=== PATIENT | female | born 1940 | race Asian ===

== ENCOUNTER 2018-08-02 06:06 | Day surgery (SDC) | payer MEDICARE, OTHER ==
[~2018-08-02] VITALS: Ht 154.9 cm; Wt 56.0 kg
[~2018-08-02 06:06] MED LIST: SODIUM CHLORIDE 0.9% 1,000 ML IV ONE
[2018-08-02] MEDS ORDERED: SODIUM CHLORIDE 0.9% 1,000 ML IV ONE (07:00)
[2018-08-02] MEDS ORDERED: MONT10TA21 PO (07:42)
[2018-08-02] MEDS ORDERED: ASPI81 PO (07:42)
[2018-08-02] MEDS ORDERED: METH-417 PO (07:42)
[2018-08-02] MEDS ORDERED: OMEP20 PO (07:42)
[2018-08-02] MEDS ORDERED: BENZ-51 PO (07:42)
[2018-08-02] MEDS ORDERED: ATOR10TA84 PO (07:42)
[2018-08-02] MEDS ORDERED: AMLO-511 PO (07:42)
[2018-08-02] MEDS ORDERED: ALEN70TA48 PO (07:42)
[2018-08-02] MEDS ORDERED: CHL25 PO (07:42)
[2018-08-02] MEDS ORDERED: FLUT16H NASAL (07:42)
[2018-08-02] MEDS ORDERED: DOXY100C PO (07:42)
[2018-08-02] MEDS ORDERED: ACET-66 PO (07:42)
[2018-08-02] MEDS ORDERED: CALC-898 PO (07:42)
[2018-08-02] MEDS ORDERED: BECL10.6 IH (07:42)
[2018-08-02] MEDS ORDERED: FentaNYL CITRATE-PF 100 MCG/2 ML VIAL ONE (07:53)
[2018-08-02] MEDS ORDERED: MIDAZOLAM HCL 2 MG/2 ML VIAL ONE (07:53)
[2018-08-02] MEDS ORDERED: MethylPREDNISolone SOD SUCC 125 MG/2 ML VIAL IVP ONE (09:00)
[2018-08-02] MEDS ORDERED: MethylPREDNISolone SOD SUCC 125 MG/2 ML VIAL ONE (09:10)
[2018-08-02] MEDS ORDERED: OXYGEN THERAPY IH SCH (20:00)
== END 2018-08-02 10:00 | disposition home or self-care (01) ==
LOC: SURGERY 06:06
PROVIDERS: ATTEND Internal Medicine Critical Care Medicine
DX: J38.4 Edema of larynx (principal); B37.0 Candidal stomatitis; J84.111 Idiopathic interstitial pneumonia, not otherwise specified; J98.09 Other diseases of bronchus, not elsewhere classified; J98.8 Other specified respiratory disorders; I10 Essential (primary) hypertension; K21.9 Gastro-esophageal reflux disease without esophagitis; I70.0 Atherosclerosis of aorta; M19.90 Unspecified osteoarthritis, unspecified site; Z90.49 Acquired absence of other specified parts of digestive tract; Z87.19 Personal history of other diseases of the digestive system; Z79.2 Long term (current) use of antibiotics; Z88.0 Allergy status to penicillin; Z98.41 Cataract extraction status, right eye; Z98.42 Cataract extraction status, left eye; Z86.73 Personal history of transient ischemic attack (TIA), and cerebral infarction without residual deficits; Z79.82 Long term (current) use of aspirin; Z79.891 Long term (current) use of opiate analgesic; Z98.890 Other specified postprocedural states; Z79.899 Other long term (current) drug therapy
CPT/HCPCS: 31623; 31624; 71045; 87015; 87070; 87205; 87206; 87220; J2250; J2930; J3010; J7030

== ENCOUNTER 2020-03-05 06:23 | Day surgery (SDC) | payer MEDICARE ==
[~2020-03-05] VITALS: Ht 152.4 cm; Wt 59.1 kg
[~2020-03-05 06:23] MED LIST changes: +ACET-66 PO; +AMLO5TAB9 PO; +ATOR10TA84 PO; +BECL10.6 IH; +CALC-898 PO; +CHL25 PO; +FLUT16H NASAL; +METH-417 PO; +MONT10TA21 PO; +SODIUM CHLORIDE 0.9% 1,000 ML ONE
[2020-03-05] MEDS ORDERED: LIDOCAINE 2% 30 ML JELLY TP ONE (06:24)
[2020-03-05] MEDS ORDERED: ALBUTEROL SULFATE 2.5 MG/0.5 ML NEB SOLUTION NEB ONE (06:24)
[2020-03-05] MEDS ORDERED: LIDOCAINE 4% 50 ML SOLUTION TP ONE (06:24)
[2020-03-05] MEDS ORDERED: BENZOCAINE 20% 50 MCG/SPRAY 57 GM TP ONE (06:24)
[2020-03-05] MEDS ORDERED: MECL-138 PO (07:42)
[2020-03-05] MEDS ORDERED: ACET-66 PO (07:42)
[2020-03-05] MEDS ORDERED: ITRA100 PO (07:42)
[2020-03-05] MEDS ORDERED: ALEN70TA65 PO (07:42)
[2020-03-05] MEDS ORDERED: FAMO20 PO (07:42)
[2020-03-05] MEDS ORDERED: KETO5DRO6 OU (07:42)
[2020-03-05] MEDS ORDERED: CALC-1105 PO (07:42)
[2020-03-05] MEDS ORDERED: ALPR-340 PO (07:42)
[2020-03-05] MEDS ORDERED: LACT-227 PO (07:42)
[2020-03-05] MEDS ORDERED: FLUT16H NASAL (07:42)
[2020-03-05] MEDS ORDERED: POTA-92 PO (07:42)
[2020-03-05] MEDS ORDERED: MIDAZOLAM HCL 2 MG/2 ML VIAL ONE (08:11)
[2020-03-05] MEDS ORDERED: FentaNYL CITRATE-PF 100 MCG/2 ML VIAL ONE (08:11)
[2020-03-05] MEDS ORDERED: MethylPREDNISolone SOD SUCC 125 MG/2 ML VIAL IVP ONE (08:45)
[2020-03-05] MEDS ORDERED: MethylPREDNISolone SOD SUCC 125 MG/2 ML VIAL ONE (09:21)
[2020-03-05] MEDS ORDERED: OXYGEN THERAPY IH SCH (20:00)
== END 2020-03-05 10:20 | disposition home or self-care (01) ==
LOC: SURGERY 06:23
PROVIDERS: ATTEND Internal Medicine Critical Care Medicine
DX: B37.0 Candidal stomatitis (principal); J38.4 Edema of larynx; Z11.59 Encounter for screening for other viral diseases; M19.90 Unspecified osteoarthritis, unspecified site; E78.00 Pure hypercholesterolemia, unspecified; F41.9 Anxiety disorder, unspecified; K21.9 Gastro-esophageal reflux disease without esophagitis; Z98.890 Other specified postprocedural states
CPT/HCPCS: 31623; 31624; 71045; 87015; 87070; 87101; 87205; 87206; 87220; 87635 ×2; 88108; 88312; 93005; J2250; J2930; J3010; J7030